=== PATIENT | female | born 1985 | race Two or more races ===

== ENCOUNTER 2023-10-29 21:34 | Inpatient (IN) | payer OTHER ==
[2023-10-22 15:07] LABS: HEMOGLOBIN 10.8 g/dL (12.0-15.00); MEAN CELL VOLUME 86.8 fL (80.00-100.00); MEAN CORPUSCULAR HEMOGLOBIN 28.4 pg (27.00-32.0); MEAN CORPUSCULAR HGB CONC 32.8 g/dl (32.0-36.0); PLATELET COUNT 230 K/uL (150-450); RED BLOOD COUNT 3.81 M/uL (4.00-6.00); RED CELL DISTRIBUTION WIDTH 14.6 % (11.5-14.5)
[2023-10-22 15:31] LABS: CALCIUM 9.3 mg/dL (8.5-10.1); CREATININE SERUM 0.4 mg/dL (0.55-1.02); GFR 181.64; POTASSIUM 4.09 mEq/L (3.5-5.1)
[2023-10-22 15:36] LABS: INR 0.94; PROTHROMBIN TIME 9.9 SECONDS (9.0-11.5)
[2023-10-22 15:37] LABS: PARTIAL THROMBOPLASTIN TIME 28.8 SECONDS (22.0-34.0)
[~2023-10-29] VITALS: Ht 152.4 cm; Wt 3.6 kg
[2023-10-29] MEDS ORDERED: RINGERS SOLUTION,LACTATED 1,000 ML IV SCH (22:00)
[2023-10-29] MEDS ORDERED: PRENATAL TABLE1 EAC1 PO (22:15)
[2023-10-29] MEDS ORDERED: IRON159 MG PO (22:16)
[2023-10-29] MEDS ORDERED: OXYTOCIN 20 UNITS/500ML RL PIGGYBAG IV SCH (22:30)
[2023-10-30] MEDS ORDERED: PROMETHAZINE HCL 25 MG/ML AMPUL ONE ×2 (01:27→03:15)
[2023-10-30] MEDS ORDERED: MEPERIDINE HCL/PF 25 MG/ML VIAL IV ONE (02:00)
[2023-10-30] MEDS ORDERED: PROMETHAZINE HCL 25 MG/ML AMPUL IV ONE ×2 (02:00→03:45)
[2023-10-30] MEDS ORDERED: MEPERIDINE HCL 25 MG/ML AMPUL IV ONE (03:45)
[2023-10-30] MEDS ORDERED: ONDANSETRON HCL 2 MG/ML VIAL ONE (05:55)
[2023-10-30] MEDS ORDERED: ONDANSETRON HCL 2 MG/ML VIAL IV ONE (06:15)
[2023-10-30] MEDS ORDERED: CEFAZOLIN SODIUM 1,000 MG VIAL ONE (09:13)
[2023-10-30] MEDS ORDERED: ERYTHROMYCIN BASE 1 GM TUBE OP ONE ×2 (09:19→09:45)
[2023-10-30] MEDS ORDERED: OXYTOCIN 10 UNITS/ML VIAL ONE (09:19)
[2023-10-30] MEDS ORDERED: CEFAZOLIN SODIUM 1,000 MG VIAL IV SCH (09:30)
[2023-10-30] MEDS ORDERED: OXYTOCIN 10 UNITS/ML VIAL IV ONE (09:45)
[2023-10-30] MEDS ORDERED: CHLORHEXIDINE GLUCONATE 120 ML BOTTLE TOP ONE ×2 (10:54→11:15)
[2023-10-30] MEDS ORDERED: PROMETHAZINE HCL 50 MG/ML AMPUL IM PRN (11:00)
[2023-10-30] MEDS ORDERED: MEPERIDINE HCL/PF 50 MG/ML VIAL IM PRN (11:00)
[2023-10-30] MEDS ORDERED: KETOROLAC TROMETHAMINE 30 MG VIAL ONE (12:32)
[2023-10-30] MEDS ORDERED: KETOROLAC TROMETHAMINE 30 MG VIAL IV SCH (13:00)
[2023-10-30] MEDS ORDERED: OXYTOCIN 500 ML IV SCH (22:30)
[2023-10-31 07:52] LABS: HEMATOCRIT 24.3 % (36.0-45.00); MEAN CELL VOLUME 87.5 fL (80.00-100.00); MEAN CORPUSCULAR HGB CONC 32.9 g/dl (32.0-36.0); PLATELET COUNT 177 K/uL (150-450); RED BLOOD COUNT 2.78 M/uL (4.00-6.00); RED CELL DISTRIBUTION WIDTH 15.4 % (11.5-14.5)
[2023-10-31 08:00] LABS: MEAN CORPUSCULAR HEMOGLOBIN 28.7 pg (27.00-32.0)
[2023-10-31] MEDS ORDERED: OxyCODONE HCL/APAP UD (PERCOCET) PO PRN (08:00)
[2023-10-31] MEDS ORDERED: DOCUSATE SODIUM 100MG CAP PO SCH (11:47)
[2023-10-31] MEDS ORDERED: PNV,CALCIUM 72/IRON/FOLIC ACID 1 TAB TABLET PO SCH (11:48)
[2023-10-31] MEDS ORDERED: SIMETHICONE 125 MG CAPSULE PO SCH (13:00)
[2023-10-31] MEDS ORDERED: IBUprofen 800 MG TABLET PO SCH (17:00)
[2023-10-31] MEDS ORDERED: FERROUS SULFATE 325 MG TABLET.EC PO SCH (17:00)
[2023-11-01 07:58] LABS: HEMATOCRIT 24.4 % (36.0-45.00); MEAN CELL VOLUME 87.4 fL (80.00-100.00); PLATELET COUNT 197 K/uL (150-450); RED BLOOD COUNT 2.79 M/uL (4.00-6.00); RED CELL DISTRIBUTION WIDTH 15.9 % (11.5-14.5)
[2023-11-01 07:59] LABS: HEMOGLOBIN 8.1 g/dL (12.0-15.00)
== END 2023-11-02 12:03 | disposition home or self-care (01) | DRG 788 ==
LOC: LDR 21:34 → OB/GYN 21:34 → LDR 22:22 → OB/GYN 10-30 09:55 → LDR 11-02 14:02
PROVIDERS: ADMIT Obstetrics & Gynecology; ATTEND Obstetrics & Gynecology
PROC: 4A1HXCZ Monitoring of Products of Conception, Cardiac Rate, External Approach (ICD-10-PCS; 2023-10-29)
PROC: 10D00Z1 Extraction of Products of Conception, Low, Open Approach (ICD-10-PCS; principal; 2023-10-30 09:45)
DX: O42.02 Full-term premature rupture of membranes, onset of labor within 24 hours of rupture (principal); O36.8130 Decreased fetal movements, third trimester, not applicable or unspecified; Z3A.38 38 weeks gestation of pregnancy; Z37.0 Single live birth; Z20.822 Contact with and (suspected) exposure to COVID-19